=== PATIENT | male | born 1960 | race African-American/Black ===

== ENCOUNTER 2017-09-10 19:12 | Emergency (ER) | payer OTHER ==
[~2017-09-10] VITALS: Ht 177.8 cm; Wt 105.8 kg
[2017-09-10 19:41] VITALS: Ht 177.8 cm; Wt 105.8 kg
[2017-09-10 21:05] VITALS: BP 192/114
== END 2017-09-10 21:25 | disposition home or self-care (01) ==
LOC: ED 19:12
DX: G89.29 Other chronic pain (principal); M79.605 Pain in left leg; M79.604 Pain in right leg; I10 Essential (primary) hypertension; E11.9 Type 2 diabetes mellitus without complications
CPT/HCPCS: J1885